=== PATIENT | male | born 1940 | race Caucasian/White ===

== ENCOUNTER 2017-09-04 06:43 | Inpatient (IN) | payer OTHER ==
--- NOTE | 2017-09-04 06:49 | PDHPUP ---
History & Physical Update H&P update statement: This history and physical update is based on an assessment of the patient which was completed after admission or registration (within 24 hours), but prior to the surgery/procedure. H&P update: H&P reviewed & patient examined, no change in patient's condition since H&P completed
[2017-09-04] MEDS ORDERED: ceFAZolin 2 GM/DEXTROSE 100 ML IV ONE (08:10)
[2017-09-04] MEDS ORDERED: LIDOCAINE 1% 2 ML INJ ID PRN (08:11)
[2017-09-04] MEDS ORDERED: LR 1,000 ML IV ONE (08:11)
[2017-09-04 09:10] LABS: ANION GAP 10 mEq/L (8-16); CALCIUM 9.3 mg/dL (8.5-10.4); CARBON DIOXIDE 21 mEq/l (22-31); CHLORIDE 108 mEq/L (97-110); CREATININE 1.4 mg/dL (0.7-1.3); GLOMERULAR FILTRATION RATE 49; GLUCOSE 85 mg/dL (70-100); POTASSIUM 4.9 mEq/L (3.5-5.2); SODIUM 139 mEq/L (134-144)
--- NOTE | 2017-09-04 09:15 | PDANEPAE ---
ANE History of Present Illness 77 yo M with cervical stenosis here for ACDF ANE Past Medical History - Cardiovascular History Hx Hypertension: Yes Hx Arrhythmias: No Hx Chest Pain: No Hx Coronary Artery / Peripheral Vascular Disease: No Hx CHF / Valvular Disease: No Hx Palpitations: No - Pulmonary History Hx COPD: No Hx Asthma/Reactive Airway Disease: No Hx Recent Upper Respiratory Infection: No Hx Oxygen in Use at Home: No Hx Sleep Apnea: No Sleep Apnea Screening Result - Last Documented: Positive - Neurologic History Hx Cerebrovascular Accident: No Hx Seizures: No Hx Dementia: No - Endocrine History Hx Diabetes: No - Renal History Hx Renal Disorders: No - Liver History Hx Hepatic Disorders: No - Neurological & Psychiatric Hx Hx Neurological and Psychiatric Disorders: No - Cancer History Hx Cancer: No - Congenital Disorder History Hx Congenital Disorders: No - GI History Hx Gastrointestinal Disorders: No - Other Health History Other Health History: none - Chronic Pain History Chronic Pain: No - Surgical History Prior Surgeries: L Carpal tunnel release 2016. Hx L knee surgery 1964 ANE Review of Systems Review of Systems: - Exercise capacity METS (RN): 4 METS ANE Patient History - Allergies Allergies/Adverse Reactions: No Known Allergies Allergy (Unverified 08/14/17 10:54) - Home Medications Home medications: home medication list seen and reviewed Home Medications: Aspirin [Aspirin 81mg (*)] 81 mg PO DAILY 08/14/17 [Last Taken Unknown] Lisinopril/Hctz 20/12.5MG [Zestoretic/Prinzide 20/12.5MG (*)] 2 ea PO DAILY [Last Taken Unknown] Pravastatin Sodium 20 mg PO HS 08/14/17 [Last Taken Unknown] amLODIPine BESYLATE [Norvasc 5 mg (*)] 5 mg PO DAILY AT 6AM 08/14/17 [Last Taken Unknown] - NPO status NPO Status: no food or drink >8 hours NPO Since - Liquids (Date): 09/03/17 NPO Since - Liquids (Time): 22:00 NPO Since - Solids (Date): 09/03/17 NPO Since - Solids (Time): 20:00 - Anes Hx Anes Hx: no prior problems - Smoking Hx Smoking Status: Never smoked - Alcohol Use Alcohol Use: None - Family Anes Hx Family Anes Hx: none Family Hx Anesthesia Complications: none ANE Labs/Vital Signs - Labs Result Diagrams: 09/04/17 08:30 - Vital Signs Blood Pressure: 115/68 Heart Rate: 68 Respiratory Rate: 16 O2 Sat (%): 95 Height: 182.88 cm Weight: 83.915 kg ANE Physical Exam - Airway Neck exam: decreased ROM Mallampati Score: Class 3 Mouth exam: poor dentition, dentures - Pulmonary Pulmonary: no respiratory distress - Cardiovascular Cardiovascular: regular rate and rhythym - ASA Status ASA Status: III ANE Anesthesia Plan Anesthesia Plan: general endotracheal anesthesia (1/2 MAC gas) Lines/Monitors: arterial line Total IV Anesthesia: Yes
[2017-09-04] MEDS ORDERED: BISACODYL 10 MG SUPP PR PRN (09:21)
[2017-09-04] MEDS ORDERED: LACTULOSE 20 GM/30 ML UDCUP PO PRN (09:21)
[2017-09-04] MEDS ORDERED: ONDANSETRON DISINTEGRATING 4 MG TAB PO PRN (09:21)
[2017-09-04] MEDS ORDERED: HYDROmorphONE/DILAUDID 6 MG/30 ML PCA IV PRN (09:21)
[2017-09-04] MEDS ORDERED: HYDROmorphONE/DILAUDID 1 MG/ML INJ IVP PRN ×2 (09:21→13:36)
[2017-09-04] MEDS ORDERED: MAGNESIUM HYDROXIDE 30 ML UDCUP PO PRN (09:21)
[2017-09-04] MEDS ORDERED: ONDANSETRON 4 MG/2 ML VIAL IVP PRN ×2 (09:21→13:36)
[2017-09-04] MEDS ORDERED: HYDROCODONE/APAP 5/325 TAB PO PRN ×2 (09:21→13:36)
[2017-09-04] MEDS ORDERED: POLYETHYLENE GLYCOL 3350 17 GM PKT PO PRN (09:21)
[2017-09-04] MEDS ORDERED: NALOXONE HCL 0.4 MG/ML INJ IVP PRN ×2 (09:21→13:36)
[2017-09-04] MEDS ORDERED: BACITRACIN 50,000 UNITS/10 ML SYR IRR ONE (09:24)
[2017-09-04] MEDS ORDERED: BUPIVACAINE 0.25% 30 ML SDV ONE ×2 (09:24→13:08)
[2017-09-04] MEDS ORDERED: PROPOFOL/EMULSION 500 MG/50 ML BOTTLE IV ONE ×2 (09:25→11:47)
[2017-09-04] MEDS ORDERED: REMIFENTANIL HCL 1 MG VIAL ONE ×2 (09:25→11:46)
[2017-09-04] MEDS ORDERED: ROCURONIUM 50 MG/5 ML VIAL ONE (09:25)
[2017-09-04] MEDS ORDERED: PROPOFOL 200 MG/20 ML VIAL ONE (09:25)
[2017-09-04] MEDS ORDERED: LIDOCAINE 2% 100 MG/5 ML SYR ONE (09:25)
[2017-09-04] MEDS ORDERED: fentaNYL 100 MCG/2 ML INJ ONE (09:25)
[2017-09-04] MEDS ORDERED: CHLORHEXIDINE GLUC HIBICLENS 118 ML BTL TP ONE (09:25)
[2017-09-04] MEDS ORDERED: NS W/ 20 KCl/L 1,000 ML IV SCH (09:30)
[2017-09-04] MEDS ORDERED: PHENYLEPHRINE HCL 100 MCG/ML SYR ONE (09:47)
[2017-09-04] MEDS ORDERED: THROMBIN (BOVINE) 20,000 UNIT VIAL TP ONE (09:58)
[2017-09-04] MEDS ORDERED: HYDROmorphONE/DILAUDID 1 MG/ML INJ ONE (13:13)
[2017-09-04] MEDS ORDERED: fentaNYL 100 MCG/2 ML INJ IVP PRN (13:36)
[2017-09-04] MEDS ORDERED: ACETAMINOPHEN 500 MG TAB PO PRN (13:36)
--- NOTE | 2017-09-04 13:59 | SOAPPROG ---
SOAP Progress Note Assessment/Plan: Post Op Visit S: Awake and alert. Pt with expected neck pain. No cohn/cp/sob/abd or gu complaints O: AFVSS/PERRLA/EOMI no droop CN 2-12 grossly intact +lt touch 5/5 BUE/BLE = CDI Neck soft and supple A/P: 77 yo male that is s/p ACDF C3-C6 -orders in place -call with any questions or concerns -collar at all times -pt seen and examined by Dr Chacon as well 09/04/17 13:56 Objective: Vital Signs Temp Pulse Resp BP Pulse Ox 36.7 C 75 13 138/75 H 100 09/04/17 13:41 09/04/17 13:41 09/04/17 13:46 09/04/17 13:46 09/04/17 13:46 Laboratory Results 09/04/17 08:30 ICD10 Worksheet Patient Problems: Problems Problem Status Onset Arthrodesis status Acute Cervical radiculitis Acute Cervical spinal stenosis Acute - ICD10 Problem Qualifiers (1) Cervical spinal stenosis (2) Cervical radiculitis (3) Arthrodesis status
[2017-09-04] MEDS: oxyCODONE IR 5 MG TAB PO PRN ×2 (16:11→21:54)
[2017-09-04] MEDS: ACETAMINOPHEN 500 MG TAB PO SCH ×2 (16:24→21:53)
[2017-09-04] MEDS: ceFAZolin 2 GM/DEXTROSE 100 ML IV SCH ×2 (18:39→21:57)
--- NOTE | 2017-09-04 20:20 | GOP ---
[f rep st] OPERATIVE REPORT DATE OF OPERATION: 09/04/2017 SURGEON: Varsha Chacon MD PREOPERATIVE DIAGNOSIS: Cervical spondylotic myelopathy, severe cervical stenosis. POSTOPERATIVE DIAGNOSIS: Cervical spondylotic myelopathy, severe cervical stenosis. PROCEDURE PERFORMED: The patient is a 77-year-old with lumbar spine disease, having difficulty walki ng and on physical exam had upper motor neuron signs. An MRI of the cervical spine was performed dem onstrating severe cervical stenosis with cord compression at C4-5 and severe stenosis as well at C3-4 and C5-6. There was significant stenosis at C6-7 but not as severe as these other 3 levels and we s uggested a 3 level anterior cervical diskectomy and fusion. The risk of spinal cord injury, nerve in jury, pseudoarthrosis, adjacent segment disease, possible need for future spine surgery, esophageal i njury, carotid injury, recurrent laryngeal nerve injury, dysphagia, hoarseness was all discussed. He understood these risks. He did want to proceed. FINDINGS: DESCRIPTION OF PROCEDURE: The patient was taken to the operating room, placed in the supine position . General anesthesia was begun. A midline shoulder roll was placed. His neck was kept neutral. Oc ciput was extended. He was sterilely prepped and draped in usual fashion. We made a transverse inci ricky on the right side of the neck. The subcutaneous tissue was dissected using Bovie cautery down t o the platysma. We then used a combination of sharp and blunt dissection medial to the sternocleidom astoid and lateral to the strap muscles, down to the prevertebral space. A localizing x-ray was take n. We dissected the longus colli muscles off the spine at C3, 4, 5, 6. We then drilled all the vent ral osteophytes at C3, 4, 5, 6. We smoothed off the ventral surface of the vertebral body to allow p lacement of our plate later in the case. We placed distraction pins at C4 and C5. Distracted at C4- 5 and under the microscope, removed the C4-5 disk and the cartilaginous endplates. We drilled and cohn rvested subchondral bone for autologous grafting purposes and to create arthrodesis at this level. W e then opened the PLL and removed a large central disk protrusion from the spinal canal. A nice deco mpression was obtained across the central canal and then into the neural foramina bilaterally. We ch ose an 8 mm lordotic PEEK intervertebral device. We were using [employer] anatomic PTC cages. We pac ked it with bony autograft and inserted it and fashioned it to fit in the C4-5 space and we were happ y with its positioning. We removed our distraction pin at C5, distracted between C3 and C4. Adjuste d our retractors. Incised the C3-4 disk, removed the disk, the cartilaginous endplates. We drilled and harvested subchondral bone to create autologous grafting purposes. We chose a 7 mm x 16 x 14 mm anatomic PTC cage for this level and packed it with autologous harvested bone dust. Under the micros cope, we opened the posterior and longitudinal ligament and decompressed the thecal sac and the neura l foramina bilaterally. Here too there was significant stenosis. A nice decompression was obtained. We then fashioned the graft to fit properly into the C3-4 space. It was inserted at C3-4 and we we re happy with the fit. We then removed our distraction pins at the C5-6, distracted between these 2, incised the disk, removed the disk and the cartilaginous endplates. We drilled and harvested subcho ndral bone for autologous grafting purposes, and then opened the PLL and decompressed the thecal sac and the neural foramina bilaterally. We chose an 8 mm x 16 mm x 14 mm anatomic PTC cage, fashioned i t to fit in the 5-6 space, packed bony autograft and it was inserted there without difficulty. An x- ray was taken. Our distraction pins were removed. On the basis of the x-ray, we wanted to adjust th e biomechanical device at C4-5. We inserted a threaded brownlee once again into the device and then re moved the device posteriorly slightly. I then spent some additional time prepping the ventral surfac e of the vertebral bodies for acceptance of the plate. We chose a 57 mm plate and shot a localizing x-ray, and thought after bending the plate of 59 would work better. No screws had been placed. We r emoved the 57, chose the 59, increased the lordosis on the 59, inserted it. Put a single screw at C3 , a single screw at C6. Shot a localizing x-ray, and indeed the plate was in perfect position. We p laced the remaining 6 screws and locked them all according to company specification. The plate was s itting very flush along the ventral surface of the spine and there was a very good cervical lordosis. We then inspected the longus colli muscles and obtained meticulous hemostasis of the vessels there. There was really very little bleeding at any time during the case. We inspected our approach throu gh the soft tissues of the neck and there was no evidence of anything bleeding or disrupted in this a ivy. We placed 0.25% Marcaine with epinephrine in the prevertebral space. We then closed the incisi on in multiple layers using Vicryl suture. Steri-Strips were applied to the skin. The patient was t hen reversed from anesthesia, extubated, and transferred to recovery room in stable condition. There were no complications. /[id number]/MODL
[2017-09-04] MEDS: FAMOTIDINE 20 MG TAB PO SCH (21:54)
[2017-09-04] MEDS: SENNOSIDES/DOCUSATE SODIUM TAB PO SCH (21:54)
[2017-09-04] MEDS: PRAVASTATIN SODIUM 20 MG TAB PO SCH (21:54)
[2017-09-05] MEDS: ACETAMINOPHEN 500 MG TAB PO SCH ×3 (05:17→21:14)
[2017-09-05] MEDS: amLODIPine BESYLATE 5 MG TAB PO SCH (05:17)
--- NOTE | 2017-09-05 08:24 | NEUSURGPN ---
Date of Surgery: 09/04/17 Post Op Day: 1 Assessment/Plan: Assessment: 77 yo male that is s/p ACDF C3-C6 POD#1 -hard collar with patient, wear collar at all times -PT/OT/ST eval and treat -Pain well controlled -Post op xrays pending -call with any questions or concerns -pt seen and examined by Dr Chacon as well Subjective: Patient sitting up in bed eating breakfast, hands feel better than before pre op Objective: AxO x3 PERRLA, EOMI no droop CN 2-12 grossly intact +lt touch 5/5 BUE/BLE = Dressing CDI Neuro Check Frequency: per routine Urinary Catheter in Place: No Catheter Insertion Date: 09/04/17 - Physician Discussed Patient with : Oswaldo Patient Seen by : Oswaldo Neurosurgery Physical Exam - Vitals, I&O, Labs I and O 09/04/17 09/05/17 09/06/17 05:59 05:59 05:59 Intake Total 2368 Output Total 2535 1050 Balance -167 -1050 Weight 83.915 kg Intake: Oral (ml) 930 IV Intake (ml) 1250 IV Infused (ml) 188 NS W/ 20 KCl/L 1,000 ml @ 188 100 mls/hr IV CONT STUART Rx#:[id number] Output: Urine (ml) 2485 1050 Catheter 2485 900 Toilet 150 Estimated Blood Loss (ml) 50 Other: Intake Quantity Yes Yes Sufficient Vital Signs Temp Pulse Resp BP Pulse Ox 36.9 C 63 16 136/73 H 95 09/05/17 07:17 09/05/17 07:17 09/05/17 07:17 09/05/17 07:17 09/05/17 07:17 Laboratory Results 09/04/17 08:30 ICD10 Worksheet Patient Problems: Problems Problem Status Onset Arthrodesis status Acute Cervical radiculitis Acute Cervical spinal stenosis Acute
[2017-09-05] MEDS: SENNOSIDES/DOCUSATE SODIUM TAB PO SCH ×2 (08:49→21:13)
[2017-09-05] MEDS: FAMOTIDINE 20 MG TAB PO SCH ×2 (08:49→21:14)
[2017-09-05] MEDS: LISINOPRIL/HCTZ 20/12.5MG 1 EA TAB PO SCH (08:50)
[2017-09-05] MEDS: METHOCARBAMOL 750 MG TAB PO PRN ×2 (11:08→21:14)
--- NOTE | 2017-09-05 14:31 | ASMTCMCOM ---
CM Note CM Note Notes: [employer] clears pt, OT rec home vs. HHC, PT rec [facility]. Spoke w pt and Iris who are agreeable to [facility], referral sent to Anand Faulkner [facility]. CM to follow. Date Signed: 09/05/2017 02:31 PM Electronically Signed By:ABEBE Krishna
[2017-09-05] MEDS: PRAVASTATIN SODIUM 20 MG TAB PO SCH (21:13)
[2017-09-05] MEDS: oxyCODONE IR 5 MG TAB PO PRN (21:14)
[2017-09-06 03:59] VITALS: RESP 16
[2017-09-06] MEDS: amLODIPine BESYLATE 5 MG TAB PO SCH (05:47)
[2017-09-06] MEDS: ACETAMINOPHEN 500 MG TAB PO SCH ×2 (05:48→13:29)
[2017-09-06 08:05] VITALS: TEMP 98.3
[2017-09-06] MEDS: FAMOTIDINE 20 MG TAB PO SCH (08:23)
[2017-09-06] MEDS: SENNOSIDES/DOCUSATE SODIUM TAB PO SCH (08:23)
[2017-09-06] MEDS: METHOCARBAMOL 750 MG TAB PO PRN (08:35)
[2017-09-06 11:26] VITALS: BP 126/76; PULSE 72; O2SAT 94
[2017-09-06] MEDS: LISINOPRIL/HCTZ 20/12.5MG 1 EA TAB PO SCH ×2 (11:36→11:59)
--- NOTE | 2017-09-06 11:48 | NEUSURGPN ---
Assessment/Plan: Assessment: 77 yo male that is s/p ACDF C3-C6 POD#2 -hard collar with patient, wear collar at all times - ok to remove for showers or use [place] collar -PT/OT/ST eval and treat -Pain well controlled -Post op xrays show stable hardware -call with any questions or concerns -Dispo: likely home today pending clinical course -pt seen and examined by Dr Chacon as well - Call NS with any questions Subjective: Pt resting in bed, states he is swallowing fine and pain is well managed. Objective: AAOx3 NAD VSS MAEx4 Incision cdi steri strips intact Motor 5/5 BUE C collar on +LT Urinary Catheter in Place: No Catheter Insertion Date: 09/04/17 - Physician Discussed Patient with : Oswaldo Patient Seen by : Oswaldo Neurosurgery Physical Exam - Vitals, I&O, Labs I and O 09/05/17 09/06/17 09/07/17 05:59 05:59 05:59 Intake Total 2368 650 Output Total 2535 1250 Balance -167 -600 Weight 83.915 kg Intake: Oral (ml) 930 650 IV Intake (ml) 1250 IV Infused (ml) 188 NS W/ 20 KCl/L 1,000 ml @ 188 100 mls/hr IV CONT STUART Rx#:[id number] Output: Urine (ml) 2485 1250 Catheter 2485 900 Toilet 150 Urinal 200 Estimated Blood Loss (ml) 50 Other: Intake Quantity Yes Yes Sufficient Number of Voids Urinal 2 Vital Signs Temp Pulse Resp BP Pulse Ox 36.8 C 72 16 126/76 H 94 09/06/17 08:00 09/06/17 11:24 09/06/17 11:24 09/06/17 11:24 09/06/17 11:24 Laboratory Results 09/04/17 08:30 ICD10 Worksheet Patient Problems: Problems Problem Status Onset Arthrodesis status Acute Cervical radiculitis Acute Cervical spinal stenosis Acute
[2017-09-06] MEDS: oxyCODONE IR 5 MG TAB PO PRN (13:30)
--- NOTE | 2017-09-06 13:42 | PDIAF ---
- Diagnosis Code Status: Full Code - Medication Management Discharge Medications: Medications to Continue on Transfer Lisinopril/Hctz 20/12.5MG [Zestoretic/Prinzide 20/12.5MG (*)] 2 ea PO DAILY [Last Taken Unknown] Pravastatin Sodium 20 mg PO HS 08/14/17 [Last Taken Unknown] amLODIPine BESYLATE [Norvasc 5 mg (*)] 5 mg PO DAILY AT 6AM 08/14/17 [Last Taken Unknown] Methocarbamol [Robaxin 750 mg (*)] 750 mg PO QID PRN #60 tab 09/06/17 [Last Taken Unknown] oxyCODONE IR [Oxycodone Ir (*)] 5 - 10 mg PO Q4HRS PRN #90 tab 09/06/17 [Last Taken Unknown] Discharge Medications: Refer to the Discharge Home Medication list for PRN reason. PICC Care - Routine: N/A - Orders Services needed: Home Care, Physical Therapy, Occupational Therapy Home Care Face to Face: I certify that this patient was under my care and that I had the required [id number] encounter meeting the encounter requirements on the discharge day. My findings support the fact that the patient is homebound as defined in Home Care Face to Face Continued: CMS Chapter 7 Medicare Benefits Manual 30.1.1 , The condition of the patient is such that there exists a normal inability to leave home and consequently, leaving home would require a considerable and taxing effort. Diet Recommendation: no restrictions on diet Diet Texture: Regular Texture Diet, Thin Liquids, Meds Whole w/Liquids - Follow Up Care Current Providers and Referrals: JAH GALLAGHER [Primary Care Provider] - Gaston Chacon MD [Medical Doctor] -
--- NOTE | 2017-09-06 14:25 | ASMTCMCOM ---
CM Note CM Note Notes: Today pt declines [facility], Anand HOLLIDAY updated. Pt medically stable for d/c w . No CM d/c needs identified. Date Signed: 09/06/2017 02:25 PM Electronically Signed By:ABEBE Krishna
--- NOTE | 2017-09-06 14:26 | ASDISCHSUM ---
Discharge Information Plan Status:Home with No Needs Medically Cleared to Leave: Discharge Date:09/06/2017 02:03 PM CM D/C Disposition:Home, Routine, Self-Care ADT D/C Disposition:[id number] Projected Discharge Date:09/06/2017 11:00 AM Transportation at D/C: Discharge Delay Reason: Follow-Up Date:09/06/2017 11:00 AM Discharge Slot: Final Diagnosis: Placement Information Referral Type:*Home Health Care Services Referral ID:[id number] Provider Name: Address 1: Phone Number: Address 2: Fax Number: City: Selection Factors: State: Patient Contact Information Contact Name:TAI Relationship: Address:[address] City:[facility] Phone: State/Zip Code:[place] [address] Email: Financial Information Financial Class: Primary Plan Desc:MEDICARE INPATIENT Primary Plan Number:[id number] Secondary Plan Desc:ASAF Secondary Plan Number:[id number] Assessment Information [facility] CM Progress Note CM Note CM Note Notes: SALINAS patels pt, OT rec home vs. HHC, PT rec [facility]. Spoke w pt and Iris who are agreeable to [facility], referral sent to Anand Faulkner [facility]. CM to follow. Date Signed: 09/05/2017 02:31 PM Electronically Signed By:ABEBE Krishna [facility] CM Progress Note CM Note CM Note Notes: Today pt declines [facility], Anand [facility] updated. Pt medically stable for d/c w . No CM d/c needs identified. Date Signed: 09/06/2017 02:25 PM Electronically Signed By:ABEBE Krishna Intervention Information
[2017-09-07] MEDS ORDERED: ENOXAPARIN 40 MG/0.4 ML SYR SC SCH (09:00)
== END 2017-09-06 14:03 | disposition home health service (06) | DRG 473 ==
LOC: F3N 06:43
PROVIDERS: ADMIT Neurological Surgery; ATTEND Neurological Surgery
PROC: 0RT30ZZ Resection of Cervical Vertebral Disc, Open Approach (ICD-10-PCS; principal; 2017-09-04 09:00)
PROC: 0RG20A0 Fusion of 2 or more Cervical Vertebral Joints with Interbody Fusion Device, Anterior Approach, Anterior Column, Open Approach (ICD-10-PCS; principal; 2017-09-04 09:00)
PROC: 00NW0ZZ Release Cervical Spinal Cord, Open Approach (ICD-10-PCS; principal; 2017-09-04 09:00)
DX: M47.12 Other spondylosis with myelopathy, cervical region (principal); M48.02 Spinal stenosis, cervical region; M43.16 Spondylolisthesis, lumbar region; M51.36 Other intervertebral disc degeneration, lumbar region; I10 Essential (primary) hypertension
CPT/HCPCS: 92526-GN; 92610-GN; 97116-GP; 97162-GP; 97165-GO; 97535-GO; C1713; G8978-GP-CI; G8979-GP-CI; G8980-GP-CI; G8987-GO-CK; G8988-GO-CI; G8989-GO-CI; G8996-GN-CJ; G8997-GN-CI; J0171; J0690; J1170; J2001; J2370; J2704; J3010